=== PATIENT | male | born 1955 | race African-American/Black ===

== ENCOUNTER 2020-04-11 11:40 | Emergency (ER) | payer OTHER ==
[~2020-04-11] VITALS: Ht 182.9 cm; Wt 181.4 kg
[2020-04-11 11:41] VITALS: BP 136/76
== END 2020-04-11 15:10 | disposition home or self-care (01) ==
LOC: ER 11:40
DX: R60.0 Localized edema (principal); I11.0 Hypertensive heart disease with heart failure; I50.9 Heart failure, unspecified; E11.9 Type 2 diabetes mellitus without complications; Z86.718 Personal history of other venous thrombosis and embolism; Z88.8 Allergy status to other drugs, medicaments and biological substances